=== PATIENT | female | born 2005 | race Caucasian/White ===

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

== ENCOUNTER 2025-07-03 10:54 | Outpatient (AMB) | payer OTHER, MEDICAID, SELFPAY ==
--- NOTE | 2025-07-03 10:58 | A.OFFPC_ITS ---
Vital Signs 3 07/03/25 11:07 Height 4 ft 9 in Weight 218 lb BMI 47.2 BP 122/72 Blood Pressure Location Lt brachial Position Sitting Respiration 12 Pulse 78 Pulse Source Pulse Oximeter Temp 97.2 F Temp Source Oral Pulse Oximetry (%) 96 Oxygen Delivery Method Room Air Intake Visit Reasons: CPE Intake Note: New patient to [facility] and CPE Designer And Patternmaker Required: No Allergies No Known Allergies Allergy (Verified 07/03/25 10:59) Medication List - Last Reviewed 07/03/25 by Pavel Pena MA escitalopram oxalate 10 mg PO DAILY norelgestromin-ethin.estradiol 150-35 mcg/24 hr patches transdermal Tobacco use date assessed: 07/03/25 Dental Screening Dental Screen Date: 07/03/25 Did you have a dental visit in the last 12 months?: Yes Did you have a dental problem in the last 6 months where you did not have access to dental care?: No Was dental information given to patient?: Patient has dentist HPI HPI Comments 2 History of Present Illness0 Details 20 y/o F with RYANNE, obesity Surgery: None Social: Lives w/ fiance and his family Fhx: Mom alive and well; Dad alive and well; 2 brother alive and well. Health Maintenance Tdap 2015 Flu declined 07/03/25 Pap referred to [facility] for first pap History of Present Illness The patient is a 20-year-old female presenting to [facility] care & for CPE No records, Dr Mirza Generalized anxiety disorder: - The patient has a history of generaliz ed anxiety disorder and is currently taking escitalopram 10 mg. - Her dose was previously lowered from 2 0 mg. - She previously tried Zoloft but found it was not a good fit for her. - She denies any thoughts of self-harm. - She is not currently active with a cou nselor but is open to online counseling. She will meet w/ CHW today. Obesity: - The patient has a history of obesity w ith a BMI of 47.2. - She expresses concern about developing diabetes due to her weight. - She reports an unintentional weight lo ss from 222 lbs to 218 lbs over a few weeks without actively trying to lose weight. - The patient reports getting headaches every time she eats or drinks sugar. Contraceptive Management: - The patient uses a control patch for contraception. - She has not yet had a Pap smear. Suspicious Nevus: - The patient has a concerning mole on h er back that appeared a couple of months ago after a bad sunburn. - The lesion started as a small dot and then a brown ring grew around it. - She reports that it was getting bigger and is now at a steady size. - Located Left lower leg Lactose intolerance: - The patient reports she is lactose int olerant, which sometimes causes her bowel movements to be irregular. Past Medical History - Generalized anxiety disorder, managed with escitalopram 10 mg daily. - Obesity with a BMI of 47.2. - Lactose intolerance. - Reports becoming very sick after recei ving flu shots. Past Surgical History - The patient denies any history of surg marry. Family History - Mother is alive and healthy. - Father is alive and reported to be hea lthy for the most part. - She has two brothers who are alive and well. - She denies having any sisters. Social History - Employment/Education: The patient is n ot currently working or attending school. - Housing/Family Status: She lives with her fianc? and his family. - Family Planning: Uses a control patch. - Nutritional Intake: Patient reports ge tting headaches after drinking or eating sugar. - Weight Management: She has had recent unintentional weight loss from 222 lbs to 218 lbs. Review of Systems - Constitutional: Reports unintentional weight loss. - Integumentary: Reports a new and tracey ing mole on her back. - Neurological: Reports headaches after consuming sugar or alcohol. - Psychiatric: Reports anxiety. Denies t houghts of self-harm. - Gastrointestinal: Reports occasional i rregular bowel movements related to lactose intolerance; she reports pooping fine otherwise. Physical Exam General: Well developed, well nourished, in no acute distress. Appears stated age. Head: Normocephalic, atraumatic. Eyes: Pupils are equal, round and reactive to light and accommodation. Conjunctivae are clear. Scleras nonicteric bilat. Vision grossly normal. Ears: TMs clear AU, EACS WNL Nose: Patent, without discharge. Complimented on the appearance of the nose. Neck: No carotid bruit bilat. Supple, no adenopathy or thyromegaly. Checked for pain or tenderness. Breast: Edu on SBE Lungs: Clear to auscultation bilaterally. No rales, rhonchi or wheeze noted. Good air flow in all winn. Heart: Regular rate and rhythm. No murmurs, click, rubs or gallops are noted. Abdomen: Bowel sounds present in all quadrants. The abdomen is soft, nontender, with no masses or organomegaly noted. No hernias are noted. Patient reports occasional digestive issues due to lactose intolerance. : Deferred. Reviewed recommendations for routine COOK APPRENTICE Pulses: Peripheral pulses are equal and palpable bilaterally. Extremities: No clubbing, cyanosis nor edema is noted. Neurologic: Gait and station normal. Cranial Nerves 2-12 intact. Motor strength grossly symmetrical and intact. No sensory loss. Balance normal. Skin: No rashes, ulcers, or lesions noted. Turgor is good. Skin color is good. Hair and nails are without abnormalities. Psych: Normal eye contact, affect and mood appropriate, and normal interactions. Patient is alert and appropriate to context. Reports generalized anxiety disorder, managed with escitalopram 10 mg. Mole inner left lower leg Results Pending Medical Decision Making The patient is a 20-year-old female presenting to establish care with a past medical history of obesity and generalized anxiety disorder. Her anxiety is managed with escitalopram 10 mg, and a referral for counseling will be placed as she is open to this. Given her obesity, unintentional weight loss, and headaches with sugar intake, screening labs for diabetes are warranted and have been ordered for today. She has a suspicious skin lesion on her back with a history of recent appearance and change in morphology, which warrants dermatologic evaluation; a referral to dermatology will be placed. For health maintenance, her prescriptions for escitalopram and her contraceptive patch will be refilled. A referral will also be placed to an ELECTRIC MOTOR CONTROLS ASSEMBLER for continued contraceptive management and to establish care, as she has not had a Pap smear. The patient was counseled on using the patient portal for communication and to receive lab results. Plan Health Maintenance - The prescription for the control patch will be refilled. - [facility] ELECTRIC MOTOR CONTROLS ASSEMBLER group for ongoing gynecological care, as the patient has not had a Pap smear. - Patient advised to schedule a follow-u p appointment. 1. Generalized Anxiety Disorder - Continue escitalopram 10 mg daily; pre scription refilled. - A referral will be placed for counseli ng services. Meet w/ CHW today 2. Obesity And Diabetes Screening - Screening labs for diabetes have been ordered for today due to patient's weight, unintentional weight loss, and headaches with sugar intake. - Lab results will be posted to the [facility] ent portal, and the office will contact her to schedule a follow-up appointment if any abnormalities requiring treatment are found. 3. Suspicious Nevus Of Skin LLE - A referral will be placed to dermatolo gy in [place] for evaluation of the suspicious mole on her back, with the expectation that they may shave it off for biopsy. Patient Instructions - Your prescriptions for the contr ol patch and escitalopram have been refilled. - You will receive a call from our OB/GY N group to set up an appointment. - You will be referred to a dermatology office in [place] to have the mole on your back looked at. - We are also putting in a referral for you to meet with someone to discuss counseling options. - Please have your screening blood work done today in our lab. - Your lab results will be posted on the patient portal. If there are any urgent issues, you will hear from me right away. If treatment is needed, my office will call you to set up an appointment. - Use the messaging function in the [facility] ent portal to contact me if you get sick or have any needs. - The addresses for our walk-in clinics in [place] and [place] will be available on your discharge paperwork. - Stop at the front end loader driver to get a printo ut for today, tell them you need an appointment, and that you need labs. - RTO 1 year CPE sooner PRN Consent Patient was informed and verbally consented to the use of an ambient scribe for clinic note documentation during this visit. An additional 30 minutes was spent addressing the problem(s) noted at todays visit. This includes time spent before the visit reviewing the chart, time spent during the visit, and time spent after the visit on documentation reviewing laboratory results, diagnostic imaging, medications, performing a medically necessary evaluation, counseling on diagnoses, care coordination, ordering appropriate tests, ordering appropriate medications, review of tests performed by other providers, reporting test results with the patient, communication with other healthcare providers. [facility] Medical History (Updated 07/03/25 @ 11:40 by ANAT Sandoval) Anxiety Surgical History (Updated 07/03/25 @ 11:06 by Pavel Pena MA) No pertinent past surgical history Family History (Updated 07/03/25 @ 11:07 by Pavel Pena MA) Maternal Grandmother Prostate cancer Maternal Grandfather Diabetes Mother HTN (hypertension) Social History (Updated 07/03/25 @ 11:10 by Pavel Pena MA) Household Members: Significant Other and Family Both parents involved: No Caregiver staying overnight: No Housing: House Are you a primary healthcare receptionist to a significant other at home: No Do you presently have visiting nurse or other home services: No 75 years or older and lives alone: No Alcohol intake: current Patient Tobacco Use Status: Never used Tobacco e-Cigarette/Vaping Use: Never Used Second Hand Smoke Exposure: No Substance Use Type: Marijuana service: No Current occupational status: unemployed Current occupational exposures/hazards: No Cognitive needs: No Hearing needs: No Vision needs: Yes (wear glasses) Questionnaire PHQ-9 Over the last 2 weeks, how often have you been bothered by any of the following problems? 1. Little interest or pleasure in doing things: not at all 2. Feeling down, depressed, or hopeless: not at all 3. Trouble falling or staying asleep, or sleeping too much: several days 4. Feeling tired or having little energy: several days 5. Poor appetite or overeating: several days 6. Feeling bad about yourself - or that you are a failure or have let yourself or your family down: not at all 7. Trouble concentrating on things, such as reading the newspaper or watching television: not at all 8. Moving or speaking so slowly that other people could have noticed. Or the opposite - being so fidgety or restless that you have been moving around a lot more than usual: not at all 9. Thoughts that you would be better off or of hurting yourself in some way: not at all Total score: 3 Depression Screening Interpretation: Negative Depression Screening Done: Yes 50496 - PHQ-9 Billing: Yes Source: Developed by Drs. Saeid Will, Soniya Hsieh, Francisco Alexander and colleagues, with an educational ariella from [employer]. Thrive Questionnaire Date Thrive assessed: 07/03/25 I am a: Patient What is your living situation today?: I have a steady place to live Within the past 12 months, did the food you bought not last and you didn't have the money to get more?: I choose not to answer this question Within the past 12 months, did you worry whether your food would run out before you got money to buy more?: I choose not to answer this question Do you have trouble paying for medicines?: I choose not to answer this question Do you have trouble getting transportation to medical appointments?: I choose not to answer this question Do you have trouble paying your heating and electricity bill?: I choose not to answer this question Do you have trouble taking care of your child, family member or friend?: I choose not to answer this question Do you have trouble with day-to-day activities such as bathing, preparing meals, shopping, managing finances, etc.?: I choose not to answer this question Are you currently unemployed and looking for a job?: I choose not to answer this question Are you interested in more education?: I choose not to answer this question Please select the resources that you would like help with: None Currently or been in a relationship where the following occur: I choose not to answer THRIVE Score: 0 AUDIT C Alcohol Use Questionnaire (AUDIT-C) 1. How often do you have a drink containing alcohol?: Monthly or less 2. How many drinks containing alcohol do you have on a typical day when you are drinking?: 3 or 4 3. How often do you have six or more drinks on one occasion?: Never Total Score: 2 Score Reviewed/Action Taken: Yes RYANNE-7 AMB Questionnaire RYANNE-7 Date RYANNE - 7 assessed: 07/03/25 Feeling nervous, anxious, or on edge: 1 = Several days Not being able to stop or control worryin = Not at all Worrying too much about different things: 0 = Not at all Trouble relaxin = Not at all Being so restless that it is hard to sit still: 0 = Not at all Becoming easily annoyed or irritable: 1 = Several days Feeling afraid as if something awful might happen: 0 = Not at all Total RYANNE-7 score (0-4 normal; 5-9 mild; 10-14 moderate; 15-21 severe): 2 Source: Developed by Drs. Saeid Will, Soniya Hsieh, Francisco Alexander and colleagues, with an educational ariella from [employer]. RYANNE-7 Assessment Billing RYANNE-7 Assessment Tool: RYANNE-7 Assessment 81937 Physical exam (Primary Care) Vital Signs: Last Vital Signs Temp 97.2 F 07/03/25 11:07 Pulse 78 07/03/25 11:07 Resp 12 07/03/25 11:07 BP 122/72 07/03/25 11:07 Pulse Ox 96 07/03/25 11:07 Oxygen Delivery Method Room Air 07/03/25 11:07 BMI result Body Mass Index 47.2 BMI Assessment/Plan discussion: High BMI High, discussed plan: lifestyle Tobacco/Smoking Status: Tobacco use Status Tobacco use date assessed 07/03/25 07/03/25 11:02 Patient Tobacco Use Status Never used Tobacco 07/03/25 11:10 e-Cigarette/Vaping Use Never Used 07/03/25 11:10 PHQ-9: PHQ-9 Score PHQ-9: Total score 3 07/03/25 11:02 Depression Screening Interpretation: Negative Thrive Assessment: Date of Thrive Assessment Date Thrive assessed 07/03/25 07/03/25 11:02 Currently or been in a relationship where the following occur: I choose not to answer Coding Level of Care Code New Pt Level 3 (69998) New Pt Prev Care 18-39yr(38308 Diagnoses Encounter to establish care with new provider Z76.89 Obesity, morbid, BMI 40.0-49.9 E66.01 RYANNE (generalized anxiety disorder) F41.1 Atypical mole D22.9 Influenza vaccination declined Z28.21 Lactose intolerance E73.9 Adult general medical exam Z00.00 Laboratory exam ordered as part of routine general medical examination Z00.00 Additional Codes RYANNE-7 Assessment Billing - RYANNE-7 Assessment Tool: RYANNE-7 Assessment 62494 ([id number]) PHQ-9 - 74175 - PHQ-9 Billing: Yes ([id number]) Assessment & Plan Assessment & Plan (1) Encounter to establish care with new provider: Code(s): Z76.89 - Persons encountering health services in other specified circumstances (2) Obesity, morbid, BMI 40.0-49.9: Code(s): E66.01 - Morbid (severe) obesity due to excess calories Category: Medical (3) RYANNE (generalized anxiety disorder): Code(s): F41.1 - Generalized anxiety disorder Category: Medical (4) Atypical mole: Code(s): D22.9 - Melanocytic nevi, unspecified Category: Medical (5) Influenza vaccination declined: Onset Date: ~07/03/25 Code(s): Z28.21 - Immunization not carried out because of patient refusal Category: Medical (6) Lactose intolerance: Code(s): E73.9 - Lactose intolerance, unspecified Category: Medical (7) Adult general medical exam: Onset Date: ~07/03/25 Code(s): Z00.00 - Encounter for general adult medical examination without abnormal findings Category: Medical (8) Laboratory exam ordered as part of routine general medical examination: Code(s): Z00.00 - Encounter for general adult medical examination without abnormal findings Category: Medical Plan . Orders: Orders 2 Comprehensive Met. Panel Today E66.01 - Morbid (severe) obesity due to excess calories, F41.1 - Generalized anxiety disorder, Z00.00 - Encounter for general adult medical examination without abnormal findings Lipid Panel Today E66.01 - Morbid (severe) obesity due to excess calories, F41.1 - Generalized anxiety disorder, Z00.00 - Encounter for general adult medical examination without abnormal findings Microalbumin, Random (w Creat) Today E66.01 - Morbid (severe) obesity due to excess calories, F41.1 - Generalized anxiety disorder, Z00.00 - Encounter for general adult medical examination without abnormal findings Complete Blood Count no Diff Today E66.01 - Morbid (severe) obesity due to excess calories, F41.1 - Generalized anxiety disorder, Z00.00 - Encounter for general adult medical examination without abnormal findings Hemoglobin A1c Today E66.01 - Morbid (severe) obesity due to excess calories, F41.1 - Generalized anxiety disorder, Z00.00 - Encounter for general adult medical examination without abnormal findings TSH reflex Free T4 Today E66.01 - Morbid (severe) obesity due to excess calories, F41.1 - Generalized anxiety disorder, Z00.00 - Encounter for general adult medical examination without abnormal findings Vitamin B12 and Folate Today E66.01 - Morbid (severe) obesity due to excess calories, F41.1 - Generalized anxiety disorder, Z00.00 - Encounter for general adult medical examination without abnormal findings Vitamin D 25-OH Total Today E66.01 - Morbid (severe) obesity due to excess calories, F41.1 - Generalized anxiety disorder, Z00.00 - Encounter for general adult medical examination without abnormal findings Referrals 2 ELECTRIC MOTOR CONTROLS ASSEMBLER Referral Z12.4 - Encounter for screening for malignant neoplasm of cervix Dermatology Referral D22.9 - Melanocytic nevi, unspecified Medications: New 2 escitalopram oxalate 10 mg PO DAILY 90 tabs 2RF norelgestromin-ethin.estradiol 150-35 mcg/24 hr 1 patch transdermal QWEEK 3 ea 2RF Patient Instructions: Walk-In Care (Urgent Care): We Make it Easy Walk-in for urgent medical issues such as: ? Seasonal Allergies ? Insect Bites ? Cough ? Diarrhea ? Acute Asthma Attacks ? Back, Knee or Joint Pain ? Ear Infection ? Fever without a Rash ? Headaches ? Nausea ? [place] [facility], Rash or Skin Irritation ? Sore Throat ? Sports Physicals ? Vomiting Most insurances are accepted. Patients do not need to be part of the [facility] to seek care at the walk-in clinic. Locations [address] [place] [address] Open Wednesday through Wednesday 8am-5pm *Hours may vary due to staffing availability. To confirm Walk-In Care hours please call. [address] [place] [address] , [place] [address] ? [phone] [facility] Walk-In Care in [place] provides services to ages 18 and over. Open Wednesday-Wednesday: 7 a.m. to 5 p.m. and Wednesday: 9 a.m. to 3 p.m.* *Hours may vary due to staffing availability. To confirm Walk-In Care hours in [place], please call [phone]. [address] [place] [address] ? [phone] [facility] Walk-In Care in [place] provides services to ages 12 and over. Open Wednesday-Wednesday: 8 a.m. to 5 p.m. Hours may vary due to staffing availability. To confirm Walk-In Care hours in [place], please call [phone]. LABORATORY SERVICES: [facility] Lab ? Primary Location [address] [place] [address] Wednesday through Wednesday 6:00 AM ? 5:00 PM Wednesday 7:00 AM ? 11:00 AM* [phone] The [facility] Lab is centrally located near the front entrance of the Medical Center for easy outpatient access. Convenient parking is provided for outpatients. *Hours may vary due to staffing availability. To confirm Laboratory hours for any location, please call [phone]. Offsite Location For your convenience, we offer offsite laboratory draw stations at the following locations: [address] [facility], [place] ? [facility] [address], [address], [place] Wednesday through Wednesday 7:30 AM ? 1:00 PM* [phone] *Hours may vary due to staffing availability. To confirm Laboratory hours for any location, please call [phone]. [place] ? [facility] [address] [facility], [place] Wednesday through Wednesday 6:00 AM ? 3:30 PM* Wednesday 6:30 AM ? 3 PM* [phone] *Hours may vary due to staffing availability. To confirm Laboratory hours for any location, please call [phone]. [address] [facility] Wednesday through Wednesday 7:30 AM ? 4:00 PM* [phone] *Hours may vary due to staffing availability. To confirm Laboratory hours for any location, please call [phone] [place] [address] Wednesday through 9:00 AM ? 4:00 PM* *Hours may vary due to staffing availability. To confirm Laboratory hours for any location, please call [phone]. Appointments are not necessary. Walk-ins are welcome. Like all the departments throughout the [facility], our Lab undergoes frequent reviews to ensure the quality and accuracy of test results, and our staff takes special pride in its status as a nationally accredited facility. Patient Portal: [facility] ONE PATIENT. ONE RECORD. BETTER CARE. [facility] has a fully integrated, cutting- edge mobile electronic health information system that has revolutionized the way we care for our patients and manage our organization. This system improves communication and coordination enabling us to provide safe, higher-quality care, and an overall positive experience for staff and patients. Our first priority, as always, is to deliver the highest quality care possible. The system is running in the background supporting that priority. This portal is for all [facility] services and practices. If you are experiencing any technical difficulties with enrolling or logging into the Patient Portal please complete the [facility] Patient Portal Technical Support Form. [facility] now offers a new secure on-line interactive tool for patients to review their health information ? ?Patient Portal. This interactive web portal will enable patients and their families to take an active role in their care by providing easy, secure access to their health information via the internet. The Patient Portal provides patients with instant access to their health information, including laboratory results, medications, allergies, demographic information, visit history, and more. In addition to managing their own care, parents and health care proxies with authorized consent will appreciate the ability to access the records of those individuals for whom they provide care. Please note: if you wish to gain access (Proxy) to another patient?s portal, you will be required to come to the Medical Records Department in person at [facility]. Both the patient giving proxy access and the proxy will need to provide photo identification and complete the appropriate authorization. The Patient Portal also allows track their appointments online. The [facility] Patient Portal also saves patients time by allowing them to submit updates to their demographic and contact information prior to their visits. Portal email notifications will also alert patients to any new activity on their portal, such as test results and new appointments. In order to initially enroll in the [facility] Patient Portal, you will need to enter some required information including the following: * your [facility] Medical Record number * your personal home email address * name * date of Please note: In order to enroll in the [facility] Patient Portal, we need to have your email address on file in your electronic medical record. ?The email address needs to be specific for one person (yourself) in order for your Portal enrollment to be successful. ?You can update your email address in person with our Registration staff when you are registering for a hospital visit. ?Otherwise, you will need to come to the Health Information Management (Medical Records) Department at [facility]. ?We are open from Wednesday ? Wednesday from 7:30 a.m. ? 4:30 p.m. ?You will be required to present a photo id. Once you have successfully enrolled in the Patient Portal, you will receive a one-time user id and password for the Portal, sent to your email address. ?This will allow you to log into the Patient Portal within 99 hrs and reset your own logon id and password, and define personal security questions. ?Once your permanent login and password have been set, you can log into the [facility] Patient Portal at any time via the blue button above or from the Portal Logon button on any page of the [facility] website. [facility] and [facility] encourage all of our patients to enroll in Patient Portal as it presents a valuable opportunity for patients and their families to actively participate in their care and stay healthy Welcome to [facility]. ?We look forward to working with you. Health screenings for women You should visit your health care provider from time to time, even if you are healthy. The purpose of these visits is to: Screen for medical issues Assess your risk for future medical problems Encourage a healthy lifestyle Update vaccinations and other preventive care services Help you get to know your provider in case of an illness Information Even if you feel fine, you should still see your provider for regular checkups. These visits can help you avoid problems in the future. For example, the only way to find out if you have high blood pressure is to have it checked regularly. High blood sugar and high cholesterol levels also may not have any symptoms in the early stages. A simple blood test can check for these conditions. There are specific times when you should see your provider or receive specific health screenings. The [place] Preventive Services Task Force publishes a list of recommended screenings. Below are screening guidelines for women ages 18 to 39. BLOOD PRESSURE SCREENING Your blood pressure should be checked at least once every 3 to 5 years if: Your blood pressure is in the normal range (top number less than 120 mm Hg and bottom number less than 80 mm Hg) You don't have risk factors for high blood pressure Ask your provider if you need your blood pressure checked more often if: The top number is 120 to 129 mm Hg or the bottom number is 70 to 79 mm Hg You have diabetes, heart disease, kidney problems, are overweight, or have certain other health conditions You have a first-degree relative with high blood pressure You are Black You had high blood pressure during a If the top number is 130 mm Hg or greater or the bottom number is 80 mm Hg or greater, this is considered stage 1 hypertension. Schedule an appointment with your provider to learn how you can reduce your blood pressure. Watch for blood pressure screenings in your area. Ask your provider if you can stop in to have your blood pressure checked. BREAST CANCER SCREENING Experts do not agree about the benefits of breast self-exams in finding breast cancer or saving lives. Talk to your provider about what is best for you. A screening mammogram is not recommended for most women under age 40. Your provider may discuss and recommend mammograms, MRI scans, or ultrasounds if you have an increased risk for breast cancer, such as: A mother or sister who had breast cancer at a young age (most often starting screening earlier than the age the close relative was diagnosed) You carry a high-risk genetic marker CERVICAL CANCER SCREENING Cervical cancer screening should start at age 21 years unless your provider advises otherwise. After the first test: Women ages 21 through 29 should have a Pap test every 3 years. Exoprts do not agree on whether HPV testing is recommended for this age group. Women ages 30 through 65 should be screened with either a Pap test every 3 years or the HPV test every 5 years or both tests every 5 years (called cotesting ). Women who have been treated for precancer (cervical dysplasia) should continue to have Pap tests for 20 years after treatment or until age 65, whichever is longer. If you have had your uterus and cervix removed (total hysterectomy), and you have not been diagnosed with cervical cancer or precancer (high grade cervical neoplasia), you do not need cervical cancer screening. CHOLESTEROL SCREENING Cholesterol screening should begin at: Age 45 for women with no known risk factors for coronary heart disease Age 20 for women with known risk factors for coronary heart disease Repeat cholesterol screening should take place: Every 5 years for women with normal cholesterol levels More often if changes occur in lifestyle (including weight gain and diet) More often if you have diabetes, heart disease, kidney problems, or certain other conditions DIABETES SCREENING You should be screened for diabetes starting at age 35 and then repeated every 3 years if you have no risk factors for diabetes. Screening may need to start earlier and be repeated more often if you have other risk factors for diabetes, such as: You have a first degree relative with diabetes. You are overweight or have obesity. You have high blood pressure, prediabetes, or a history of heart disease. Screening for diabetes should be done if you are planning to become and you are overweight and have other risk factors such as high blood pressure. DENTAL EXAM Go to the dentist once or twice every year for an exam and cleaning. Your dentist will evaluate if you need more frequent visits. EYE EXAM Have an eye exam every 5 to 10 years before age 40. If you have vision problems, have an eye exam every 2 years or more often if recommended by your provider. You should have an eye exam that includes an examination of your retina (back of your eye) at least every year if you have diabetes. IMMUNIZATIONS Commonly needed vaccines include: Flu shot: get one every year. COVID-19 vaccine: ask your provider what is best for you. Tetanus-diphtheria and acellular pertussis (Tdap) vaccine: have one at or after age 19 as one of your tetanus-diphtheria vaccines if you did not receive it as an adolescent. Tetanus-diphtheria: have a booster (or Tdap) every 10 years. Varicella vaccine: receive 2 doses if you never had chickenpox or the varicella vaccine. Hepatitis B vaccine: receive 2, 3, or 4 doses, depending on your exact circumstances. Measles, mumps, and rubella (MMR) vaccine: receive 1 to 2 doses if you are not already immune to MMR. Your provider can tell you if you are immune. Ask your provider about the human papillomavirus (HPV) vaccine if: You have not received the HPV vaccine in the past You have not completed the full vaccine series (you should catch up on this shot) Ask your provider if you should receive other immunizations if you have certain health problems that increase your risk for some diseases such as pneumonia. INFECTIOUS DISEASE SCREENING Women who are sexually active should be screened for chlamydia and gonorrhea up until age 25. Women 25 years and older should be screened for chlamydia and gonorrhea if at high risk. Screening for hepatitis C: All adults ages 18 to 79 should get a one-time test for hepatitis C. people should be screened at every . Screening for human immunodeficiency virus (HIV): All people ages 15 to 65 should get a one-time test for HIV. Depending on your lifestyle and medical history, you may also need to be screened for infections such as syphilis and HIV, as well as other infections. PHYSICAL EXAM All adults should visit their provider from time to time, even if they are healthy. The purpose of these visits is to: Screen for disease Assess your risk of future medical problems Encourage a healthy lifestyle Update your vaccinations and other preventive care services Maintain a relationship with a provider in case of an illness Your height, weight, and BMI should be checked at every exam. During your exam, your provider may ask you about: Depression and anxiety Diet and exercise Alcohol and tobacco use Safety issues, such as using seat belts, smoke detectors, and intimate partner violence Your medicines and risk for interactions SKIN SELF-EXAM Your provider may check your skin for signs of skin cancer, especially if you're at high risk, such as if you: Have had skin cancer before Have close relatives with skin cancer Have a weakened immune system OTHER SCREENING Talk with your provider about colon cancer screening if you have a strong family history of colon cancer or polyps, or if you have had inflammatory bowel disease or polyps yourself. Routine bone density screening of women under 40 is not recommended.
[2025-07-03 11:07] VITALS: BP 122/72; PULSE 78; RESP 12; TEMP 36.2; O2SAT 96; BMI 47.2
== END 2025-07-03 11:31 | disposition home or self-care (01) ==
LOC: HO.HMCFM 10:55
PROVIDERS: PCP Nurse Practitioner Family; Visit Provider Nurse Practitioner Family
DX: Z00.00 Encounter for general adult medical examination without abnormal findings (principal); E66.01 Morbid (severe) obesity due to excess calories; Z68.42 Body mass index [BMI] 45.0-49.9, adult; F41.1 Generalized anxiety disorder; D22.9 Melanocytic nevi, unspecified; E73.9 Lactose intolerance, unspecified; Z28.21 Immunization not carried out because of patient refusal

== ENCOUNTER 2025-07-03 10:54 | Outpatient (REF) | payer OTHER, MEDICAID, SELFPAY ==
[2025-07-03 14:50] LABS: Hematocrit 38.5 % (37.0-47.0); Hemoglobin 12.4 g/dl (12.0-16.0); Mean Corpuscular HGB Conc 32.2 g/dl (31.0-35.0); Mean Corpuscular Hemoglobin 27.5 pg (27.0-33.0); Mean Corpuscular Volume 85.4 fL (80.0-98.0); NRBC Abs Auto 0.000 X10*3/uL (0.0-0.012); NRBC Pct Auto 0.0 /100WBC (0.0-0.2); Platelet Count 294 X10*3/uL (160-400); Red Blood Count 4.51 X10*6/uL (4.20-5.50); White Blood Count 11.6 X10*3/uL (4.8-10.8)
[2025-07-03 15:19] LABS: Alanine Aminotransferase 14 U/L (0-31); Albumin Level 4.2 g/dL (3.5-5.0); Alkaline Phosphatase 87 U/L (39-117); Anion Gap 12 (12-20); Aspartate Amino Transferase 18 U/L (5-31); Blood Urea Nitrogen 11 mg/dL (9-16); Calcium 9.2 mg/dL (8.4-10.2); Carbon Dioxide 24 mmol/L (22-29); Chloride 109 mmol/L (96-108); Cholesterol 183 mg/dL (<200); Estimated Glomerular Filt Rate > 60; HDL Cholesterol 43 mg/dL (>40); Potassium 3.8 mmol/L (3.3-5.1); Sodium 141 mmol/L (135-145); Total Protein 7.0 g/dL (6.5-8.0); Triglycerides 199 mg/dL (<150)
[2025-07-03 15:28] LABS: Microalbum/Creatinine Ratio Ur 8.8 ug/mg cr (<30)
[2025-07-03 15:38] LABS: Folate 3.9 ng/mL (> or = 4.0); Vitamin B12 150 pg/mL (200-900)
== END 2025-07-03 10:55 | disposition home or self-care (01) ==
LOC: HO.WFDLDS 10:54
PROVIDERS: PCP Nurse Practitioner Family; Visit Provider Nurse Practitioner Family
DX: Z00.00 Encounter for general adult medical examination without abnormal findings (principal); E66.01 Morbid (severe) obesity due to excess calories; F41.1 Generalized anxiety disorder; D22.9 Melanocytic nevi, unspecified; E73.9 Lactose intolerance, unspecified; Z28.21 Immunization not carried out because of patient refusal; Z76.89 Persons encountering health services in other specified circumstances; Z68.42 Body mass index [BMI] 45.0-49.9, adult; Z13.1 Encounter for screening for diabetes mellitus
CPT/HCPCS: 36415; 80053; 80061; 82043; 82306; 82570; 82607; 82746; 83036; 84443; 85027; 96127